=== PATIENT | female | born 1965 | race Caucasian/White ===

== ENCOUNTER 2019-05-08 05:58 | Day surgery (SDC) | payer OTHER ==
[~2019-05-08] VITALS: Ht 162.6 cm; Wt 55.8 kg
[2019-05-08 07:30] VITALS: BP 120/72
--- NOTE | 2019-05-08 10:29 | H ---
[facility] [place] [address] [place] [address] HISTORY AND PHYSICAL Name: STEFANIE GREY Room #: 150-2 [facility] M.R.#: [id number] Admission: 05/08/19 Attend Phys: Petar Madrid MD Discharge: Date of : 61 Report #: [id number] THIS REPORT FOR: //name// CC: Rosi Madrid PREOPERATIVE HISTORY AND PHYSICAL Her procedure is scheduled for 05/08/2019. The patient cannot breathe through her nose. She has a deviated nasal septum to the right side. She is in the process of working up obstructive sleep apnea. She has severe snoring. She does not get a good night sleep and she is tired during the day. PAST MEDICAL HISTORY: Her past medical history is otherwise not significant. MEDICATIONS: She is on no medications on a regular basis. ALLERGIES: She has no known drug allergies. PHYSICAL EXAMINATION: She has protrusion of the anterior cartilaginous septum into the left nasal vestibule with deviation to the right side causing blockage on both sides of her nose. She is not very congested. Her oropharynx and oral cavity were clear. IMPRESSION: Deviated nasal septum with nasal airway obstruction, complicating obstructive sleep apnea. PLAN: Nasal septoplasty. <ELECTRONICALLY SIGNED> By: Petar Madrid MD 05/08/19 1029 [id number] Petar Madrid MD /maxi
--- NOTE | 2019-05-08 10:30 | H ---
[facility] [place] [address] [place] [address] HISTORY AND PHYSICAL Name: STEFANIE GREY Room #: 150-2 [facility] M..#: [id number] Admission: 05/08/19 Attend Phys: Petar Madrid MD Discharge: Date of : 61 Report #: [id number] THIS REPORT FOR: //name// CC: Rosi Madrid DATE OF SERVICE: 05/08/2019 PREOPERATIVE DIAGNOSIS: Deviated nasal septum with nasal airway obstruction. POSTOPERATIVE DIAGNOSIS: Deviated nasal septum with nasal airway obstruction. OPERATIVE PROCEDURE: Nasal septoplasty. ANESTHESIA: General endotracheal. DESCRIPTION OF PROCEDURE: The patient was taken to the operating room and placed in the supine position. General anesthesia was induced by endotracheal intubation. Once adequate general anesthesia was obtained, local nasal anesthesia was induced by submucoperichondrial injection of 1% lidocaine with 1:100,000 epinephrine and topical application of cocaine solution. The patient was then draped in a sterile manner. The patient had nasal septal deviation into the left nasal vestibule and over into the right nasal cavity. A hemitransfixion incision was placed on the right side of the nose and the mucoperichondrium and mucoperiosteum was elevated off of the septum. The cartilage was incised in front of the bony cartilaginous junction and a portion of cartilage and bone was removed from the mid portion of the septum. Along the floor, there was hypertrophic cartilage and a fracture of the maxillary crest. The cartilage was removed as a long strip and the maxillary crest was infractured and rongeured. I isolated the anterior cartilaginous septum on both sides of the nose by dissecting into the columellar pocket. I trimmed free edge of cartilage and along the floor and then fit the cartilage into a columellar pocket. After these maneuvers, the septum sat more in the midline. The hemitransfixion incision was then closed with 4-0 chromic suture and a 4-0 plain mattress sutures placed as well. The patient tolerated the procedure well. Blood loss was approximately 10 mL. The patient was then awoken and taken to recovery room in stable condition for postoperative monitoring. <ELECTRONICALLY SIGNED> By: Petar Madrid MD 05/08/19 1030 [id number] Petar Madrid MD /nt
== END 2019-05-08 09:25 | disposition home or self-care (01) ==
LOC: OR 05:58 → TBA 05:59 → OR 09:25
DX: J34.2 Deviated nasal septum (principal); J34.89 Other specified disorders of nose and nasal sinuses; G47.33 Obstructive sleep apnea (adult) (pediatric); F17.210 Nicotine dependence, cigarettes, uncomplicated; Z98.890 Other specified postprocedural states; Z98.51 Tubal ligation status; Z79.899 Other long term (current) drug therapy
CPT/HCPCS: 50010; 50101; 50386; 50398; 56524; 56528; 62110; 62900; 70005